=== PATIENT | female | born 1985 | race American Indian/Alaskan Native ===

== ENCOUNTER 2021-01-26 13:01 | Emergency (ER) | payer OTHER, MEDICAID ==
[2021-01-26 15:35] VITALS: BP 176/96
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
--- NOTE | 2021-01-26 17:41 | XRay Report ---
Thoracic spine 3 views INDICATION: Pain FINDINGS: Pedicles appear normal throughout. Alignment appears normal. No compression fracture. Lumbar spine 3 views INDICATION: Pain FINDINGS: Alignment appears normal. No compression fractures seen. Facets are well aligned. Sacrum ap pears normal. Signer Name: Timur Edward MD Signed: 01/26/2021 5:36 PM Workstation Name: [id number]
== END 2021-01-26 18:56 | disposition home or self-care (01) ==
LOC: ED 13:01
DX: S39.012A Strain of muscle, fascia and tendon of lower back, initial encounter (principal); B02.9 Zoster without complications; I10 Essential (primary) hypertension; Z98.890 Other specified postprocedural states; Z79.899 Other long term (current) drug therapy; V49.49XA Driver injured in collision with other motor vehicles in traffic accident, initial encounter; Y92.410 Unspecified street and highway as the place of occurrence of the external cause; Y93.89 Activity, other specified; Y99.8 Other external cause status
CPT/HCPCS: 72072; 72100; 99283